=== PATIENT | female | born 1995 | race Two or more races ===

== ENCOUNTER 2023-07-13 11:38 | Emergency (ER) | payer SELFPAY ==
[2023-07-13] MEDS: Sodium Chloride 0.9% 10 ML Syringe FLUSH PRN ×3 (11:38→12:53)
[2023-07-13] MEDS ORDERED: Sodium Chloride 0.9% 1,000 ML IV ONE (11:40)
[2023-07-13] MEDS ORDERED: Ondansetron 4 MG/2 ML SDV IVPUSH ONE (11:40)
[2023-07-13 11:48] LABS: BASOPHILS ABSOLUTE AUTO 0.1 x10-3/uL (0.0-0.1); BASOPHILS PERCENT AUTO 0.6 % (0.2-1.5); EOSINOPHILS PERCENT AUTO 0.2 % (0.6-8.1); HEMATOCRIT 43.6 % (34.2-48.2); HEMOGLOBIN 14.2 g/dL (11.4-15.5); LYMPHOCYTES ABSOLUTE AUTO 4.4 x10-3/uL (1.0-4.4); LYMPHOCYTES PERCENT AUTO 30.7 % (18.4-52.1); MEAN CORPUSCULAR HGB CONC 32.6 g/dL (31.9-34.8); MEAN CORPUSCULAR VOLUME 79.9 fL (76.7-100.5); MEAN PLATELET VOLUME 7.8 fL (7.1-12.4); MONOCYTES ABSOLUTE AUTO 1.5 x10-3/uL (0.3-1.0); MONOCYTES PERCENT AUTO 10.2 % (4.4-15.7); NEUTROPHILS ABSOLUTE AUTO 8.3 x10-3/uL (1.5-6.3); NEUTROPHILS PERCENT AUTO 58.3 % (30.8-76.2); PLATELET COUNT,PLT 588 x10(3)uL (151-488); RED BLOOD CELL COUNT 5.46 x10(6)uL (3.60-5.20); RED CELL DISTRIBUTION WIDTH 14.6 % (12.3-16.5); WHITE BLOOD CELL COUNT,WBC 14.2 x10-3/uL (3.0-10.3)
[2023-07-13 11:50] LABS: BLOOD UREA NITROGEN,BUN 20 mg/dL (7-18); BUN/CREATININE RATIO 22.2 (9-20); CALCIUM 9.3 mg/dL (8.6-10.2); CARBON DIOXIDE,CO2 29 mmol/L (21-32); CREATININE 0.9 mg/dL (0.55-1.02); ESTIMATED GFR 89 mL/min (>60); GLUCOSE RANDOM 281 mg/dL (80-116); POTASSIUM,K 3.4 mmol/L (3.5-5.3); SODIUM,NA 128 mmol/L (135-145)
[2023-07-13 11:52] LABS: CHLORIDE,CL 88 mmol/L (100-110)
[2023-07-13] MEDS ORDERED: Prochlorperazine 10 MG/2 ML SDV IVPUSH ONE (12:29)
== END 2023-07-13 12:59 | disposition home or self-care (01) ==
LOC: FB.ED 11:38
DX: K52.9 Noninfective gastroenteritis and colitis, unspecified (principal); E86.0 Dehydration; E87.6 Hypokalemia; E87.1 Hypo-osmolality and hyponatremia
CPT/HCPCS: 36415; 80048; 85025; 96361; 96374; 96375; 99284; J0780; J2405; J3490; J7030